=== PATIENT | male | born 1950 | race Hispanic/Latino ===

== ENCOUNTER 2021-05-08 10:00 | Emergency (ER) | payer OTHER ==
[~2021-05-08] VITALS: Ht 167.6 cm; Wt 82.4 kg
[2021-05-08] VITALS (13 sets, daily range): BP systolic 111–147; BP diastolic 59–72
[2021-05-08 10:43] LABS: URINE BILIRUBIN - DIPSTICK NEGATIVE (NEGATIVE); URINE BLOOD DIPSTICK LARGE (NEGATIVE); URINE COLOR YELLOW; URINE GLUCOSE - DIPSTICK NEGATIVE (NEGATIVE); URINE KETONE NEGATIVE (NEGATIVE); URINE LEUK ESTERASE NEGATIVE (NEGATIVE); URINE PROTEIN - DIPSTICK 30 mg/dL (NEG-TRACE)
[2021-05-08 10:44] LABS: HEMATOCRIT 40.6 % (39.0-50.0); HEMOGLOBIN 13.5 g/dl (14.0-18.0); IMMATURE GRANULOCYTES 0.2 % (0.0-5.0); MEAN CELL VOLUME 90.8 fL CALC (80.0-100.0); MEAN CORPUSCULAR HGB 30.2 pG CALC (26.0-32.0); MEAN CORPUSCULAR HGB CONC 33.3 g/dL CAL (32.0-36.0); NEUT# 2.87 thou/uL (1.82-7.42); RED BLOOD COUNT 4.47 mill/uL (4.70-6.10); RED CELL DISTRI WIDTH 13.7 % (11.5-15.5)
[2021-05-08] MEDS ORDERED: AMLOD/BENAZP1 CA2 PO (10:50)
[2021-05-08] MEDS ORDERED: BETHANECHOL50 MG PO (10:50)
[2021-05-08] MEDS ORDERED: TAMSULOSIN0.4 MG PO (10:50)
[2021-05-08 11:07] LABS: URINE BACTERIA MANY hpf; URINE NITRITE - DIPSTICK POSITIVE (Negative); URINE RBC 25-50 RBC/hpf (0-5)
[2021-05-08 11:13] LABS: ANION GAP 12 (6-22 (CALC)); BUN 13 mg/dL (8-23); BUN/CREATININE RATIO 17 (12-20 (CALC)); CARBON DIOXIDE 28 mmol/l (22-30); CHLORIDE 103 mmol/l (95-108); CREATININE 0.7 mg/dL (0.7-1.3); GFR > 60 ML/MIN (>=60 (CALC)); GFR FOR AFR.AMER. > 60 ML/MIN (>=60 (CALC)); POTASSIUM 3.8 mmol/l (3.5-5.1); SODIUM 140 mmol/l (137-146)
[2021-05-08] MEDS ORDERED: OMNI-PAC300 MG PO (12:38)
== END 2021-05-08 13:55 | disposition home or self-care (01) | DRG 694 ==
LOC: ED 10:00
PROVIDERS: Family Medicine
DX: N21.0 Calculus in bladder (principal); R33.8 Other retention of urine; N39.0 Urinary tract infection, site not specified; I10 Essential (primary) hypertension; Z96.0 Presence of urogenital implants

== ENCOUNTER 2021-08-01 06:19 | Observation (INO) | payer OTHER ==
[2021-08-01] VITALS (8 sets, daily range): BP systolic 142–149; BP diastolic 70–76
[~2021-08-01 06:19] MED LIST: AMLOD/BENAZP1 CA2 PO; BETHANECHOL50 MG PO; OMNI-PAC300 MG PO; TAMSULOSIN0.4 MG PO; VIAGRA100 MG PO
--- NOTE | 2021-08-01 13:18 | NUR ---
RECEIVE REPORT FROM [facility]IMBLE OR. PATIENT ALERT AND ORIENTED X3. NO REFER PAIN AT THIS MOMENT. PATIENT COMING WITH PONCE WITH CONTINUOUS IRRIGATION FOR MEDICAL ORDER OPEN IN BOTH SIZE. URINE COLOR AJAY AT THIS TIME. PATIENT AND IS EDUCATED ABIUT ADMISSION, MEDICATIONS AND NURSING PLAN. PATIENT AND WIFWE REFER UNDERSTAND.
--- NOTE | 2021-08-01 20:20 | NUR ---
PT IS RESTING IN BED. PT ASSESSMENT COMPLETED AT THIS TIME. PT HAS CBI AND HAS HIS AT THE BEDSIDE. PT IS A&O X3, PT IS OCCITAN SPEAKING BUT SPEAKS GERMAN. PT IS COMFORTABLE AND HAS NO NEEDS AT THIS TIME. WILL CONTINUE HOURLY ROUNDING.
[2021-08-02 03:18] VITALS: BP 128/69
[2021-08-02 05:26] LABS: HEMATOCRIT 41.6 % (39.0-50.0); MEAN CELL VOLUME 90.2 fL CALC (80.0-100.0); MEAN CORPUSCULAR HGB 30.4 pG CALC (26.0-32.0); MEAN CORPUSCULAR HGB CONC 33.7 g/dL CAL (32.0-36.0); RED BLOOD COUNT 4.61 mill/uL (4.70-6.10); RED CELL DISTRI WIDTH 13.7 % (11.5-15.5)
[2021-08-02 05:43] LABS: ANION GAP 12 (6-22 (CALC)); BUN 13 mg/dL (8-23); BUN/CREATININE RATIO 15 (12-20 (CALC)); CARBON DIOXIDE 27 mmol/l (22-30); CHLORIDE 106 mmol/l (95-108); CREATININE 0.9 mg/dL (0.7-1.3); GFR > 60 ML/MIN (>=60 (CALC)); GFR FOR AFR.AMER. > 60 ML/MIN (>=60 (CALC)); MAGNESIUM 2.1 mg/dL (1.6-2.3); POTASSIUM 4.5 mmol/l (3.5-5.1); SODIUM 140 mmol/l (137-146)
--- NOTE | 2021-08-02 06:10 | NUR ---
PT HAD A TURP PROCEDURE WITH VESICO LASER LITHOLAPAXY AND IS ON CBI. PT HAD A TOTAL OF 7 3000ML BAGS OF NS. PT HAD A AN INPUT OF 21,000 AND AN OUTPUT OF 20,550. OUTPUT AND TIMES ARE BELOW 1999 @ 2019 2500 @ 2145 2500 @ 2225 2300 @ 0015 2000 @ 0210 2750 @ 0313 2250 @ 0406 2500 @ 0500 1980 @ 3659
--- NOTE | 2021-08-02 06:26 | NUR ---
PT ON CBI AND 2000ML'S WERE EMPTIED AT 0626. WILL CONTINUE TO MONITOR.
[2021-08-02 07:03] VITALS: BP 138/77
--- NOTE | 2021-08-02 08:02 | NUR ---
PT RECEIVED FROM [employer] RN IN STABLE CONDITION PT CURRENTLY HAS NO COMPLAINTS, WOULD LIKE TO GO HOME SAFETY PRECAUTIONS IN PLACE, PONCE LINE TRACED, PERSONAL ITEMS AND CALL LIGHT WITHIN REACH PLAN OF CARE DISCUSSED
--- NOTE | 2021-08-02 12:32 | NUR ---
PT DISCHARGED TO HOME IN STABLE CONDITION WITH SPOUSE AT BESIDE IV REMOVED [address] WAY PONCE STILL IN PLACE WITH LEG BAG ATTACHED PT VERBALIZES UNDERSTANDING OF DISCHARGED EXPECTATIONS NO FURTHER ACTIONS AT THIS TIME
[2021-08-03] MEDS ORDERED: PYRIDIUM200 MG PO (08:53)
[2021-08-03] MEDS ORDERED: CIPROFLOXACN500 MG PO (08:53)
== END 2021-08-02 12:50 | disposition home or self-care (01) | DRG 713 ==
LOC: ORM 06:19 → MS2 13:05
PROVIDERS: ADMIT Hospitalist; ATTEND Urology
PROC: 0VB08ZZ Excision of Prostate, Via Natural or Artificial Opening Endoscopic (ICD-10-PCS; principal; 2021-08-01)
PROC: 0TCB8ZZ Extirpation of Matter from Bladder, Via Natural or Artificial Opening Endoscopic (ICD-10-PCS; 2021-08-01)
DX: N40.1 Benign prostatic hyperplasia with lower urinary tract symptoms (principal); N13.8 Other obstructive and reflux uropathy; R33.8 Other retention of urine; N21.0 Calculus in bladder; N20.0 Calculus of kidney; N32.89 Other specified disorders of bladder; I10 Essential (primary) hypertension
CPT/HCPCS: J0131; J1956

== ENCOUNTER 2021-08-03 07:13 | Emergency (ER) | payer OTHER ==
[2021-08-03] VITALS (9 sets, daily range): BP systolic 126–151; BP diastolic 56–66
[~2021-08-03] VITALS: Ht 167.6 cm; Wt 81.0 kg
[2021-08-03 08:17] LABS: URINE BLOOD DIPSTICK LARGE (NEGATIVE); URINE GLUCOSE - DIPSTICK NEGATIVE (NEGATIVE); URINE KETONE NEGATIVE (NEGATIVE); URINE LEUK ESTERASE TRACE (NEGATIVE); URINE PH 5.5 (4.5-8.0); URINE PROTEIN - DIPSTICK 100 mg/dL (NEG-TRACE); URINE SPECIFIC GRAVITY >=1.030; URINE UROBILINOGEN - DIPSTICK 0.2 E.U./dL (0.2)
[2021-08-03 08:25] LABS: URINE BILIRUBIN - DIPSTICK SMALL (NEGATIVE)
[2021-08-03 08:26] LABS: URINE COLOR BROWN; URINE NITRITE - DIPSTICK NEGATIVE (Negative)
[2021-08-03 08:27] LABS: URINE RBC 50-100 RBC/hpf (0-5)
[2021-08-03] MEDS ORDERED: CIPROFLOXACN500 MG PO (08:53)
[2021-08-03] MEDS ORDERED: PYRIDIUM200 MG PO (08:53)
== END 2021-08-03 09:29 | disposition home or self-care (01) | DRG 690 ==
LOC: ED 07:13
DX: N39.0 Urinary tract infection, site not specified (principal); T83.031A Leakage of indwelling urethral catheter, initial encounter; Y84.6 Urinary catheterization as the cause of abnormal reaction of the patient, or of later complication, without mention of misadventure at the time of the procedure; I10 Essential (primary) hypertension